=== PATIENT | female | born 2000 | race Caucasian/White ===

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

== ENCOUNTER 2020-02-12 05:03 | Inpatient (IN) | payer MEDICAID ==
[~2020-02-12] VITALS: Ht 172.7 cm; Wt 85.0 kg
[~2020-02-12 05:03] MED LIST changes: +AZIT500T PO
[2020-02-12 05:16] VITALS: BP 111/75
[2020-02-12] MEDS ORDERED: LACTATED RINGERS 1,000 ML IV SCH ×2 (05:24→16:12)
[2020-02-12] MEDS ORDERED: OXYTOCIN 30U/ 0.9% NaCL 500ML 500 ML IV ONE (05:24)
[2020-02-12] MEDS ORDERED: D5%-LACTATED RINGERS 1,000 ML IV SCH (05:24)
[2020-02-12] MEDS ORDERED: FENTANYL PF 100 MCG/2ML IV PRN (05:30)
[2020-02-12] MEDS ORDERED: TERBUTALINE 1 MG/ML, 1ML SQ PRN (05:30)
[2020-02-12] MEDS ORDERED: CALCIUM CARBONATE 500 MG TAB.CHEW PO PRN (05:30)
[2020-02-12] MEDS ORDERED: ONDANSETRON 2MG/ML, 2ML IVPush PRN (05:30)
[2020-02-12] MEDS ORDERED: TERBUTALINE 1 MG/ML, 1ML IVPush PRN (05:30)
[2020-02-12] MEDS ORDERED: OXYTOCIN 30U/ 0.9% NaCL 500ML 500 ML ONE ×3 (05:44→19:46)
[2020-02-12] MEDS ORDERED: NEWBORN KIT ONE (05:44)
[2020-02-12] MEDS ORDERED: PENICILLIN GK 5,000,000 UNITS in DEXTROSE 5% 100 ML IVPB ONE (06:00)
[2020-02-12] MEDS ORDERED: PENICILLIN GK 2,500,000 UNITS in DEXTROSE 5% 100 ML IVPB SCH (06:00)
[2020-02-12 06:06] LABS: BASOPHILS # (AUTO) 0.04 x10^3/uL (0-0.3); BASOPHILS % (AUTO) 0 % (0-1); EOSINOPHILS # (AUTO) 0.16 x10^3/uL (0-0.8); EOSINOPHILS % (AUTO) 1 % (1-7); LYMPHOCYTES # (AUTO) 1.92 x10^3/uL (1-6.1); LYMPHOCYTES % (AUTO) 14 % (22-44); MD NO; MEAN CORPUSCULAR HEMOGLOBIN 30.3 pg (27.0-34.8); MEAN CORPUSCULAR HGB CONC 32.6 g/dL (32.4-35.8); MEAN CORPUSCULAR VOLUME 92.9 fL (80-100); MEAN PLATELET VOLUME 8.7 fL (7.4-10.4); MONOCYTES # (AUTO) 1.12 x10^3/uL (0-1.4); MONOCYTES % (AUTO) 8 % (2-9); NEUTROPHILS # (AUTO) 11.01 x10^3/uL (1.8-8.0); NEUTROPHILS % (AUTO) 77 % (42-75); PLATELET COUNT 226 x10^3/uL (130-400); RED BLOOD COUNT 4.02 x10^6/uL (3.82-5.3); RED CELL DISTRIBUTION WIDTH 14.3 % (9.6-15.2)
[2020-02-12] MEDS ORDERED: FENTANYL PF 100 MCG/2ML ONE ×3 (13:24→15:31)
[2020-02-12] MEDS ORDERED: LIDOCAINE 1%, 20ML ONE (13:28)
[2020-02-12] MEDS ORDERED: MISOPROSTOL 200 MCG TABLET ONE (13:28)
[2020-02-12] MEDS: FENTANYL PF 100 MCG/2ML IVPush PRN ×3 (13:30→15:32)
[2020-02-12] MEDS ORDERED: FENTANYL/BUPIV./NS/PF 250 ML EPIDCONT SCH (16:12)
[2020-02-12] MEDS ORDERED: BUPIVACAINE 0.25% ONE (16:20)
[2020-02-12] MEDS ORDERED: FENTANYL/BUPIV./NS/PF 250 ML EPIDCONT ONE (16:20)
[2020-02-12] MEDS ORDERED: EPHEDRINE 50 MG/ML, 1ML IVPush PRN (16:30)
[2020-02-12] MEDS ORDERED: LACTATED RINGERS 1,000 ML IVBOLUS PRN (16:30)
[2020-02-12] MEDS: OXYTOCIN 30U/ 0.9% NaCL 500ML 500 ML IV SCH (19:09)
[2020-02-12] MEDS ORDERED: METHYLERGONOVINE 0.2 MG/ML IM PRN (19:30)
[2020-02-12] MEDS ORDERED: SIMETHICONE 80 MG CHEW TAB PO PRN (19:30)
[2020-02-12] MEDS ORDERED: OXYcodone/APAP 5/325MG TABLET PO PRN ×2 (19:30)
[2020-02-12] MEDS ORDERED: MISOPROSTOL 200 MCG TABLET PR PRN (19:30)
[2020-02-12] MEDS ORDERED: CARBOPROST TROMETHAMINE 250 MCG/ML, 1ML IM PRN (19:30)
[2020-02-12] MEDS ORDERED: IBUPROFEN 600 MG TABLET ONE (19:38)
[2020-02-12 21:50] VITALS: BP 101/67
[2020-02-13 03:43] LABS: BASOPHILS # (AUTO) 0.05 x10^3/uL (0-0.3); BASOPHILS % (AUTO) 0 % (0-1); EOSINOPHILS # (AUTO) 0.09 x10^3/uL (0-0.8); EOSINOPHILS % (AUTO) 1 % (1-7); LYMPHOCYTES # (AUTO) 1.73 x10^3/uL (1-6.1); LYMPHOCYTES % (AUTO) 10 % (22-44); MD SCAN; MEAN CORPUSCULAR HEMOGLOBIN 30.2 pg (27.0-34.8); MEAN CORPUSCULAR HGB CONC 33.1 g/dL (32.4-35.8); MEAN CORPUSCULAR VOLUME 91.3 fL (80-100); MEAN PLATELET VOLUME 8.8 fL (7.4-10.4); MONOCYTES # (AUTO) 1.36 x10^3/uL (0-1.4); MONOCYTES % (AUTO) 8 % (2-9); NEUTROPHILS # (AUTO) 15.02 x10^3/uL (1.8-8.0); NEUTROPHILS % (AUTO) 82 % (42-75); PLATELET COUNT 188 x10^3/uL (130-400); RED BLOOD COUNT 3.67 x10^6/uL (3.82-5.3); RED CELL DISTRIBUTION WIDTH 13.9 % (9.6-15.2)
[2020-02-13] MEDS: IBUPROFEN 800 MG TABLET PO PRN ×2 (04:00→17:36)
[2020-02-13 04:06] VITALS: BP 115/76
[2020-02-13] MEDS: OXYTOCIN 30U/ 0.9% NaCL 500ML 500 ML IV SCH ×2 (05:09→15:09)
[2020-02-13 07:45] VITALS: BP 120/82
[2020-02-13] MEDS: PRENATAL VIT/IRON/FA 1 EACH TABLET PO SCH (10:13)
[2020-02-13] MEDS: DOCUSATE 100 MG CAPSULE PO PRN (10:13)
[2020-02-13 12:15] VITALS: BP 115/65
[2020-02-13 16:30] VITALS: BP 126/79
[2020-02-13 19:30] VITALS: BP 119/75
[2020-02-14] MEDS: OXYTOCIN 30U/ 0.9% NaCL 500ML 500 ML IV SCH ×2 (01:09→11:09)
[2020-02-14 07:15] VITALS: BP 130/87
[2020-02-14] MEDS: DOCUSATE 100 MG CAPSULE PO PRN (09:46)
[2020-02-14] MEDS: PRENATAL VIT/IRON/FA 1 EACH TABLET PO SCH (09:46)
[2020-02-14] MEDS: IBUPROFEN 800 MG TABLET PO PRN (17:35)
[2020-02-14 20:00] VITALS: BP 123/77
[2020-02-15 08:00] VITALS: BP 126/79
[2020-02-15] MEDS: IBUPROFEN 800 MG TABLET PO PRN ×2 (08:33→16:58)
[2020-02-15] MEDS: PRENATAL VIT/IRON/FA 1 EACH TABLET PO SCH (08:34)
[2020-02-15] MEDS: DOCUSATE 100 MG CAPSULE PO PRN (08:34)
[2020-02-15] MEDS ORDERED: IBUP-1222 PO (16:53)
== END 2020-02-15 18:49 | disposition home or self-care (01) | DRG 807 ==
LOC: LDIP 05:03 → 2NW 21:38
PROVIDERS: ADMIT Obstetrics & Gynecology; ATTEND Obstetrics & Gynecology
PROC: 10E0XZZ Delivery of Products of Conception, External Approach (ICD-10-PCS; principal; 2020-02-12)
PROC: 0KQM0ZZ Repair Perineum Muscle, Open Approach (ICD-10-PCS; 2020-02-12)
PROC: 10907ZC Drainage of Amniotic Fluid, Therapeutic from Products of Conception, Via Natural or Artificial Opening (ICD-10-PCS; 2020-02-12)
DX: O99.824 Streptococcus B carrier state complicating childbirth (principal); Z37.0 Single live birth; O70.1 Second degree perineal laceration during delivery; O66.0 Obstructed labor due to shoulder dystocia
CPT/HCPCS: 36415; 72148; 85025; 86592; 86850; 86900; G0378; J2540; J3010; J2590; J7120

== ENCOUNTER 2020-12-30 08:00 | Emergency (ER) | payer MEDICAID ==
[~2020-12-30] VITALS: Ht 172.7 cm; Wt 67.7 kg
[~2020-12-30 08:00] MED LIST changes: +IBUP-1222 PO
[2020-12-30] MEDS ORDERED: ONDANSETRON 2MG/ML, 2ML IVPush ONE (08:30)
[2020-12-30] MEDS ORDERED: SODIUM CHLORIDE FLUSH 10ML SYR IVF ONE (08:30)
[2020-12-30] MEDS ORDERED: MAALOX/HYOSCYAMINE/LIDOCAINE 45 ML BTL PO ONE (08:30)
[2020-12-30] MEDS ORDERED: SODIUM CHLORIDE 0.9% 1,000ML IVBOLUS ONE (08:30)
[2020-12-30] MEDS ORDERED: FAMOTIDINE 20 MG/2 ML IVPush ONE (08:30)
[2020-12-30] MEDS ORDERED: ONDANSETRON 2MG/ML, 2ML ONE (08:52)
[2020-12-30] MEDS ORDERED: MAALOX/HYOSCYAMINE/LIDOCAINE 45 ML BTL ONE (08:52)
[2020-12-30] MEDS ORDERED: FAMOTIDINE 20 MG/2 ML ONE (08:53)
--- NOTE | 2020-12-30 09:00 | NUR ---
PT AMBULATORY TO & FROM [facility] W/OUT INCIDENT, GAIT STEADY, VOIDED SPECIMEN PROVIDED. STATES VOMITING STARTED THIS AM. C/O DOMITILA-UMBILICAL PAIN "I'VE BEEN GETTING CRAMPS RIGHT THERE FOR A COUPLE OF DAYS". NO MEDS TAKEN FOR SX. LAST BM - THIS MORNING, SOFT. LMP - UNKNOWN, HAS IUD. PLACED IN FEBRUARY 2020. LAST ORAL INTAKE - 193 LAST NOC.
--- NOTE | 2020-12-30 09:18 | NUR ---
PT MEDICATED PER EMAR. NS INFUSING - IV SITE PATENT. PT RESTING QUIETLY ON GURNEY USING OWN CELL PHONE, SIDE RAIL UP X1, CALL LIGHT W/IN REACH.
[2020-12-30 09:34] LABS: BASOPHILS % (AUTO) 0 % (0-1); EOSINOPHILS % (AUTO) 2 % (1-7); LYMPHOCYTES % (AUTO) 7 % (22-44); MD NO; MEAN CORPUSCULAR HEMOGLOBIN 31.6 pg (27.0-34.8); MEAN CORPUSCULAR HGB CONC 34.8 g/dL (32.4-35.8); MEAN PLATELET VOLUME 9.3 fL (7.4-10.4); MONOCYTES % (AUTO) 9 % (2-9); NEUTROPHILS % (AUTO) 83 % (42-75); PLATELET COUNT 179 x10^3/uL (130-400); RED BLOOD COUNT 4.92 x10^6/uL (3.82-5.3); RED CELL DISTRIBUTION WIDTH 13.4 % (9.6-15.2)
[2020-12-30 09:49] LABS: ALANINE AMINOTRANSFERASE 20 U/L (12-78); ALBUMIN 4.2 g/dL (3.4-5.0); CALCIUM 9.1 mg/dL (8.5-10.1); CHLORIDE 113 mmol/L (98-107); CREATININE 0.75 mg/dL (0.55-1.02)
[2020-12-30 09:50] LABS: MICROSCOPIC INDICATED
[2020-12-30 09:53] LABS: ALKALINE PHOSPHATASE 134 U/L (45-117); BILIRUBIN,TOTAL 0.6 mg/dL (0.2-1.0); TOTAL PROTEIN 7.1 g/dL (6.4-8.2)
[2020-12-30 09:57] LABS: ANION GAP 3 mmol/L (5-15)
--- NOTE | 2020-12-30 10:02 | NUR ---
NS BOLUS COMPLETED. PT RESTING QUIETLY ON GURNEY, WATCHING TV. NO COMPLAINTS, AT THIS TIME. PO CHALLENGE INITIATED W/ WATER.
--- NOTE | 2020-12-30 10:16 | NUR ---
PO CHALLENGE PASSED; PT DENIES NAUSEA.
[2020-12-30 10:48] VITALS: BP 96/58
== END 2020-12-30 10:50 | disposition home or self-care (01) ==
LOC: ED 09:09
DX: R11.2 Nausea with vomiting, unspecified (principal); R10.84 Generalized abdominal pain; R19.7 Diarrhea, unspecified
CPT/HCPCS: 36415; 80053; 81001; 83690; 84703; 85025; 87086; 96361; 96374; 96375; 99284; J2405; J7030

== ENCOUNTER 2021-02-02 12:08 | Emergency (ER) | payer MEDICAID ==
[~2021-02-02] VITALS: Ht 172.7 cm; Wt 64.8 kg
[2021-02-02 13:16] LABS: BASOPHILS % (AUTO) 1 % (0-1); EOSINOPHILS % (AUTO) 3 % (1-7); LYMPHOCYTES % (AUTO) 22 % (22-44); MEAN CORPUSCULAR HEMOGLOBIN 31.4 pg (27.0-34.8); MEAN CORPUSCULAR HGB CONC 34.4 g/dL (32.4-35.8); MEAN PLATELET VOLUME 8.9 fL (7.4-10.4); MONOCYTES % (AUTO) 10 % (2-9); NEUTROPHILS % (AUTO) 64 % (42-75); PLATELET COUNT 199 x10^3/uL (130-400); RED BLOOD COUNT 4.62 x10^6/uL (3.82-5.3)
[2021-02-02 13:29] LABS: ALANINE AMINOTRANSFERASE 14 U/L (12-78); ALBUMIN 3.8 g/dL (3.4-5.0); ANION GAP 5 mmol/L (5-15); CALCIUM 8.9 mg/dL (8.5-10.1); CHLORIDE 112 mmol/L (98-107); CREATININE 0.82 mg/dL (0.55-1.02)
--- NOTE | 2021-02-02 13:29 | NUR ---
PT STEADY AMBULATION TO BATHROOM FOR URINE COLLECTION
[2021-02-02 13:33] LABS: ALKALINE PHOSPHATASE 109 U/L (45-117); BILIRUBIN,TOTAL 0.8 mg/dL (0.2-1.0); TOTAL PROTEIN 6.5 g/dL (6.4-8.2)
[2021-02-02 14:03] LABS: MICROSCOPIC AUTO
[2021-02-02] MEDS ORDERED: CEFTRIAXONE 1,000 MG ONE (14:30)
[2021-02-02] MEDS ORDERED: CEFTRIAXONE 1,000 MG IM ONE (14:30)
[2021-02-02 14:47] VITALS: BP 115/85
== END 2021-02-02 14:47 | disposition home or self-care (01) ==
LOC: ED 12:59
DX: N30.00 Acute cystitis without hematuria (principal); R10.30 Lower abdominal pain, unspecified; F17.210 Nicotine dependence, cigarettes, uncomplicated
CPT/HCPCS: 36415; 80053; 81001; 84703; 85025; 87077; 87086; 96372; 99283; J0696; 87186